=== PATIENT | male | born 1955 | race Caucasian/White ===

== ENCOUNTER → 2016-07-01 | Outpatient (REF) | payer BC ==
[~2016-07-01] MED LIST: /PANT40TA; ASPI325T; NITR0.4S; ZOCO40TA
== END ==
LOC: M SFHCPLAZ 15:31
PROVIDERS: ATTEND Physician Assistant
DX: R35.0 Frequency of micturition (principal); M54.5 Low back pain

== ENCOUNTER → 2016-07-02 | Outpatient (CLI) | payer BC ==
--- NOTE | 2016-07-02 19:26 | REP ---
RENAL ULTRASOUND: HISTORY: Right flank pain. The right kidney is normal in echogenicity. The right kidney measures 6.3 cm in transverse by 6.4 cm in AP by 13.7 cm in cephalocaudal dimensions. The left kidney is increased in echogenicity. The left kidney measures 4.4 cm in transverse by 6.2 cm in AP by 11.2 cm in cephalocaudal dimensions. A cyst is present in the upper pole of the right kidney. The cyst measures 5.1 x 3.4 x 4.2 cm. There is no hydronephrosis or mass. There are no filling defects in the urinary bladder. IMPRESSION: There is a cyst in the upper pole of the right kidney. Signed by Willy Jorgensen MD 07/02/2016 07:34 P
== END ==
LOC: M RAD 16:49
PROVIDERS: ATTEND Physician Assistant
DX: N28.1 Cyst of kidney, acquired (principal)

== ENCOUNTER → 2016-09-29 | Outpatient (CLI) | payer BC ==
--- NOTE | 2016-09-29 10:40 | REP ---
Clinical: Renal cyst. Comparison: 07/02/2016. Findings: The bilateral kidneys are essentially normal in contour, size, echogenicity and reniform shape. No hydronephrosis, nephrolithiasis, or renal mass lesions are identified. Right kidney measures 14.3 x 5.4 x 5.4 cm and includes stable 5.6 x 4.3 x 4.8 cm cyst in the upper pole. Left kidney measures 11.5 x 5.2 x 4.9 cm without cyst. Bladder is under distended and grossly unremarkable. Impression: Stable right upper pole renal cyst measures 5.6 cm maximal diameter and is identified on prior CT dated 06/25/2005. Signed by Andrzej Nj MD 09/29/2016 10:30 A
== END ==
LOC: M RAD 09:40
PROVIDERS: ATTEND Physician Assistant
DX: N28.1 Cyst of kidney, acquired (principal)

== ENCOUNTER → 2016-11-20 | Outpatient (CLI) | payer BC ==
--- NOTE | 2016-11-20 12:09 | REP ---
Clinical: Arthralgia. Technique: AP, lateral, bilateral oblique and sunrise views of the right knee. Findings: Advanced tricompartmental osteoarthritic degenerative changes are appreciated including osteophytosis, subchondral sclerosis, tibiofemoral and patellofemoral joint space narrowing, and chondrocalcinosis as well as loose bodies. A small suprapatellar effusion is suggested. There is no acute fracture or dislocation identified. Impression: Advanced tricompartmental degenerative changes. Small suprapatellar effusion. Signed by Andrzej Nj MD 11/20/2016 12:00 P
== END ==
LOC: M SMT 11:09
PROVIDERS: ATTEND Nurse Practitioner Family
DX: M17.11 Unilateral primary osteoarthritis, right knee (principal); M25.461 Effusion, right knee

== ENCOUNTER → 2016-11-20 | Outpatient (REF) | payer BC ==
[2016-11-20 19:38] LABS: BASO # 0.1 K/mm3 (0.0-0.2); EOS # 0.1 K/mm3 (0.0-0.50); LARGE UNSTAINED CELL # 0.1 K/mm3 (0.0-0.4); LARGE UNSTAINED CELL % 1.8 % (0.0-4.0); LYMPH # 1.5 K/mm3 (1.5-4.5); LYMPH % 20.3 % (24.0-44.0); MEAN CORPUSCULAR HEMOGLOBIN 34.8 pg (27.0-33.0); MEAN CORPUSCULAR HGB CONC 33.5 g/dl (32.0-36.5); MEAN CORPUSCULAR VOLUME 103.7 fl (80.0-96.0); MONO # 0.5 K/mm3 (0.0-0.8); MONO % 7.4 % (0.0-5.0); NEUTROPHILS # 4.9 K/mm3 (1.8-7.7); NEUTROPHILS % 67.5 % (36.0-66.0); PLATELET COUNT, AUTOMATED 280 k/mm3 (150-450); RED CELL DISTRIBUTION WIDTH 11.9 % (11.5-14.5); WHITE BLOOD COUNT 7.3 K/mm3 (4.0-10.0)
[2016-11-25 00:06] LABS: Lyme Disease IgG/IgM Antibodie <0.91 ISR (0.00-0.90); Lyme Disease IgM Ab Quantitati <0.80 index (0.00-0.79)
== END ==
LOC: M SFHCPLAZ 10:54
PROVIDERS: ATTEND Nurse Practitioner Family
DX: R50.9 Fever, unspecified (principal); M25.561 Pain in right knee

== ENCOUNTER → 2016-11-25 | Outpatient (CLI) | payer BC ==
--- NOTE | 2016-11-25 22:09 | REP ---
Clinical: Back pain. Arthralgia. Technique: AP, lateral, bilateral oblique and coned-down views of the lumbosacral spine. Findings: Moderate to early advanced multilevel degenerative disc osteophyte complex are noted. Findings include endplate sclerosis marginal osteophytes disc space narrowed and hypertrophic facet changes H are most pronounced at the L4-L5, L5-S1 and L3-L4 levels. No acute fracture / compression injury or subluxation. No spondylolysis or spondylolisthesis. Impression: Moderate to early advanced multilevel degenerative changes. Signed by Andrzej Nj MD 11/25/2016 10:01 P
--- NOTE | 2016-11-25 22:11 | REP ---
Clinical: Hip pain. Arthralgia. Technique: AP view of the pelvis with neutral and frog lateral views of the right and left hip. Findings: Symmetric early advanced degenerative changes include increased sclerosis to the acetabular roof with marginal spurring, joint space narrowing as well as moderate spur along the superior margin of the right femoral head and bilateral cortical irregularity at the greater trochanters. No acute fracture dislocation. Impression: Relatively symmetric early advanced degenerative changes. Signed by Andrzej Nj MD 11/25/2016 10:03 P
== END ==
LOC: M WUC 15:54
PROVIDERS: ATTEND Physician Assistant Medical
DX: M47.816 Spondylosis without myelopathy or radiculopathy, lumbar region (principal); M16.0 Bilateral primary osteoarthritis of hip

== ENCOUNTER → 2016-11-25 | Outpatient (REF) | payer BC ==
[2016-11-25 19:36] LABS: BASO % 0.4 % (0.0-1.0); EOS # 0.1 K/mm3 (0.0-0.50); EOS % 1.9 % (0.0-3.0); LARGE UNSTAINED CELL # 0.2 K/mm3 (0.0-0.4); LARGE UNSTAINED CELL % 2.3 % (0.0-4.0); LYMPH # 1.9 K/mm3 (1.5-4.5); LYMPH % 24.4 % (24.0-44.0); MEAN CORPUSCULAR HEMOGLOBIN 33.9 pg (27.0-33.0); MEAN CORPUSCULAR HGB CONC 32.6 g/dl (32.0-36.5); MEAN CORPUSCULAR VOLUME 104.1 fl (80.0-96.0); MONO # 0.5 K/mm3 (0.0-0.8); MONO % 7.5 % (0.0-5.0); NEUTROPHILS # 4.5 K/mm3 (1.8-7.7); NEUTROPHILS % 63.5 % (36.0-66.0); PLATELET COUNT, AUTOMATED 315 k/mm3 (150-450); WHITE BLOOD COUNT 7.1 K/mm3 (4.0-10.0)
[2016-11-25 21:26] LABS: ERYTHROCYTE SEDIMENTATION RATE 68 mm/hr (0-20)
== END ==
LOC: M SFHCPLAZ 15:07
PROVIDERS: ATTEND Physician Assistant Medical
DX: R50.9 Fever, unspecified (principal)

== ENCOUNTER → 2016-11-28 | Outpatient (REF) | payer BC ==
[2016-11-28 20:25] LABS: MEAN CORPUSCULAR HEMOGLOBIN 34.7 pg (27.0-33.0); MEAN CORPUSCULAR HGB CONC 33.9 g/dl (32.0-36.5); MEAN CORPUSCULAR VOLUME 102.2 fl (80.0-96.0); RED CELL DISTRIBUTION WIDTH 11.4 % (11.5-14.5); WHITE BLOOD COUNT 6.3 K/mm3 (4.0-10.0)
[2016-12-02 00:11] LABS: Lyme Disease IgG/IgM Antibodie <0.91 ISR (0.00-0.90); Lyme Disease IgM Ab Quantitati <0.80 index (0.00-0.79)
== END ==
LOC: M SFHCPLAZ 10:54
PROVIDERS: ATTEND Family Medicine
DX: M19.90 Unspecified osteoarthritis, unspecified site (principal)

== ENCOUNTER → 2016-12-11 | Outpatient (REF) | payer BC ==
[2016-12-11 14:43] LABS: BASO % 0.3 % (0.0-1.0); EOS # 0.1 K/mm3 (0.0-0.50); EOS % 1.3 % (0.0-3.0); LARGE UNSTAINED CELL # 0.1 K/mm3 (0.0-0.4); LARGE UNSTAINED CELL % 1.7 % (0.0-4.0); LYMPH # 1.5 K/mm3 (1.5-4.5); LYMPH % 20.5 % (24.0-44.0); MEAN CORPUSCULAR HEMOGLOBIN 33.6 pg (27.0-33.0); MEAN CORPUSCULAR HGB CONC 33.6 g/dl (32.0-36.5); MEAN CORPUSCULAR VOLUME 100.1 fl (80.0-96.0); MONO # 0.5 K/mm3 (0.0-0.8); MONO % 6.9 % (0.0-5.0); NEUTROPHILS % 69.4 % (36.0-66.0); PLATELET COUNT, AUTOMATED 461 k/mm3 (150-450); RED CELL DISTRIBUTION WIDTH 11.2 % (11.5-14.5); WHITE BLOOD COUNT 7.2 K/mm3 (4.0-10.0)
[2016-12-11 15:15] LABS: ERYTHROCYTE SEDIMENTATION RATE 66 mm/hr (0-20)
[2016-12-17 14:14] LABS: BABESIOSIS LEVEL IGG <1:10 (Neg:<1:10); BABESIOSIS LEVEL IGM <1:10 (Neg:<1:10); Lyme Disease IgG/IgM Antibodie <0.91 ISR (0.00-0.90); Lyme Disease IgM Ab Quantitati <0.80 index (0.00-0.79)
== END ==
LOC: M SFHCPLAZ 13:26
PROVIDERS: ATTEND Internal Medicine Infectious Disease
DX: R50.9 Fever, unspecified (principal); M25.50 Pain in unspecified joint

== ENCOUNTER → 2016-12-22 | Outpatient (REF) | payer BC ==
[2016-12-22 11:27] LABS: CRYSTALS, BODY FLUID NONE SEEN (NONE SEEN); SYNOVIAL FLUID COLOR YELLOW (YELLOW)
[2016-12-22 11:37] LABS: URIC ACID, BODY FLUID 4.3 MG/DL (NOT ESTABLISHED)
[2016-12-22 11:52] LABS: RBC ADVIA BF 0.01; RBC CALC. BF 10000 (< 10mm3 cells/uL); WBC CALC. BF 9000 cells/uL (0-20)
[2016-12-22 12:01] LABS: BF DIFF IF INDICATED? YES (NO)
[2016-12-22 12:28] LABS: CC BF DIFF EXAM CYTOCENTRIFUGE; HCT SOURCE RT KNEE
== END ==
LOC: M LAB REF 10:47
PROVIDERS: ATTEND Orthopaedic Surgery
DX: M25.561 Pain in right knee (principal)

== ENCOUNTER → 2017-01-30 | Outpatient (REF) | payer BC ==
[2017-01-30 20:52] LABS: BASO % 0.6 % (0.0-1.0); EOS # 0.2 K/mm3 (0.0-0.50); EOS % 2.8 % (0.0-3.0); LARGE UNSTAINED CELL # 0.2 K/mm3 (0.0-0.4); LARGE UNSTAINED CELL % 2.6 % (0.0-4.0); LYMPH # 2.2 K/mm3 (1.5-4.5); LYMPH % 28.6 % (24.0-44.0); MEAN CORPUSCULAR HGB CONC 31.8 g/dl (32.0-36.5); MEAN CORPUSCULAR VOLUME 97.4 fl (80.0-96.0); MONO # 0.7 K/mm3 (0.0-0.8); MONO % 10.4 % (0.0-5.0); NEUTROPHILS # 3.8 K/mm3 (1.8-7.7); NEUTROPHILS % 55.1 % (36.0-66.0); PLATELET COUNT, AUTOMATED 412 k/mm3 (150-450); RED CELL DISTRIBUTION WIDTH 12.7 % (11.5-14.5); WHITE BLOOD COUNT 6.9 K/mm3 (4.0-10.0)
== END ==
LOC: M SFHCLERA 17:27
PROVIDERS: ATTEND Physician Assistant
DX: K92.1 Melena (principal)

== ENCOUNTER → 2017-03-06 | Outpatient (REF) | payer BC ==
[2017-03-06 11:49] LABS: MEAN CORPUSCULAR HEMOGLOBIN 32.6 pg (27.0-33.0); MEAN CORPUSCULAR HGB CONC 32.4 g/dl (32.0-36.5); MEAN CORPUSCULAR VOLUME 100.7 fl (80.0-96.0); PLATELET COUNT, AUTOMATED 257 10^3/uL (150-450); RED CELL DISTRIBUTION WIDTH 16.2 % (11.5-14.5); WHITE BLOOD COUNT 5.8 10^3/uL (4.0-10.0)
[2017-03-06 12:14] LABS: ALBUMIN 3.2 GM/DL (3.2-5.2); ALBUMIN/GLOBULIN RATIO 0.78 (1.00-1.93); ALKALINE PHOSPHATASE 72 U/L (45-117); ALT/SGPT 50 U/L (12-78); ANION GAP 7 MEQ/L (8-16); AST/SGOT 32 U/L (15-37); BILIRUBIN,TOTAL 0.6 MG/DL (0.2-1.0); BLOOD UREA NITROGEN 14 MG/DL (7-18); CALCIUM LEVEL 8.8 MG/DL (8.8-10.2); CARBON DIOXIDE LEVEL 29 MEQ/L (21-32); CHLORIDE LEVEL 104 MEQ/L (98-107); CHOLESTEROL LEVEL 116 MG/DL (<200); CREATININE FOR GFR 0.79 MG/DL (0.70-1.30); GLOMERULAR FILTRATION RATE > 60.0 (>49); GLUCOSE, FASTING 85 MG/DL (80-110); POTASSIUM SERUM 4.7 MEQ/L (3.5-5.1); SODIUM LEVEL 140 MEQ/L (136-145); TOTAL PROTEIN 7.3 GM/DL (6.4-8.2); TRIGLYCERIDES LEVEL 59 MG/DL (<150)
== END ==
LOC: M SFHCPLAZ 09:09
PROVIDERS: ATTEND Family Medicine
DX: I25.10 Atherosclerotic heart disease of native coronary artery without angina pectoris (principal); G71.2 Congenital myopathies; E78.2 Mixed hyperlipidemia; Z12.5 Encounter for screening for malignant neoplasm of prostate
CPT/HCPCS: 36415; 80053; 80061; 82550; 85027; G0103

== ENCOUNTER 2017-04-16 11:44 | Day surgery (SDC) | payer BC ==
[~2017-04-16] VITALS: Ht 182.9 cm; Wt 89.4 kg
[~2017-04-16 11:44] MED LIST changes: +ASPI1TAB PO; +CARV6.25; +PRED25TA PO; +REME30TA PO; +SULF500T2 PO
[2017-04-16] MEDS ORDERED: NS 1,000 ML IV ONE (14:15)
[2017-04-16] MEDS ORDERED: PROPOFOL 200 MG/20 ML VIAL As Ordered ONE (14:47)
--- NOTE | 2017-04-16 15:14 | ROOR ---
Patient Name: Lux Lees Procedure Date: 04/16/2017 2:49 PM Date of : 1955 Age: 61 Room: [facility] Gender: Male Note Status: Finalized Procedure: Colonoscopy Indications: Screening for colorectal malignant neoplasm, last colonoscopy incomplete (more recent than 10 years ago), Incidental - Hematochezia Providers: Preet VILLA MD Referring MD: Rambo Wu MD Requesting Provider: Medicines: Monitored Anesthesia Care Complications: No immediate complications. Procedure: Pre-Anesthesia Assessment: - The heart rate, respiratory rate, oxygen saturations, blood pressure, adequacy of pulmonary ventilation, and response to care were monitored throughout the procedure. The Colonoscope was introduced through the anus and advanced to 8 cm into the ileum. The colonoscopy was performed without difficulty. The patient tolerated the procedure well. The quality of the bowel preparation was good. Findings: Hemorrhoids were found on perianal exam. A 3 mm polyp was found in the sigmoid colon. The polyp was sessile. The polyp was removed with a jumbo cold forceps. Resection and retrieval were complete. Multiple medium-mouthed diverticula were found in the sigmoid colon. The exam was otherwise without abnormality on direct and retroflexion views. (Exam: Complete, Prep: Good or Excellent.) Impression: - (Exam: Complete, Prep: Good or Excellent.) - Hemorrhoids found on perianal exam. - One 3 mm polyp in the sigmoid colon, removed with a jumbo cold forceps. Resected and retrieved. - Moderate diverticulosis in the sigmoid colon. - The examination was otherwise normal on direct and retroflexion views. Recommendation: - Telephone endoscopist for pathology results in 2 weeks. - If the pathology report reveals adenomatous tissue, then repeat the colonoscopy for surveillance in 5 years. - If the pathology report indicates hyperplastic polyp, then repeat colonoscopy for screening purposes in 10 years. Preet Villa MD Preet VILLA MD 04/16/2017 3:14:00 PM This report has been signed electronically. Number of Addenda: 0 Note Initiated On: 04/16/2017 2:49 PM Estimated Blood Loss: Estimated blood loss: none.
[2017-04-16 15:38] VITALS: BP 150/86
== END 2017-04-16 15:56 | disposition home or self-care (01) ==
LOC: M OPP 11:44
PROVIDERS: ATTEND Internal Medicine Gastroenterology
DX: K64.9 Unspecified hemorrhoids (principal); K57.30 Diverticulosis of large intestine without perforation or abscess without bleeding; D12.5 Benign neoplasm of sigmoid colon; I10 Essential (primary) hypertension; E78.00 Pure hypercholesterolemia, unspecified; F17.210 Nicotine dependence, cigarettes, uncomplicated; F41.9 Anxiety disorder, unspecified; F32.9 Major depressive disorder, single episode, unspecified; R06.02 Shortness of breath; R06.83 Snoring; Z79.82 Long term (current) use of aspirin; Z79.899 Other long term (current) drug therapy; Z95.5 Presence of coronary angioplasty implant and graft

== ENCOUNTER → 2017-07-07 | Outpatient (REF) | payer BC ==
[2017-07-07 12:58] LABS: ALBUMIN 3.4 GM/DL (3.2-5.2); ALKALINE PHOSPHATASE 64 U/L (45-117); ALT/SGPT 24 U/L (12-78); ANION GAP 7 MEQ/L (8-16); AST/SGOT 20 U/L (7-37); BILIRUBIN,TOTAL 0.4 MG/DL (0.2-1.0); BLOOD UREA NITROGEN 17 MG/DL (7-18); CALCIUM LEVEL 9.3 MG/DL (8.8-10.2); CARBON DIOXIDE LEVEL 30 MEQ/L (21-32); CHLORIDE LEVEL 104 MEQ/L (98-107); CREATININE FOR GFR 0.76 MG/DL (0.70-1.30); GLOMERULAR FILTRATION RATE > 60.0 (>49); GLUCOSE, FASTING 93 MG/DL (70-100); POTASSIUM SERUM 4.7 MEQ/L (3.5-5.1); SODIUM LEVEL 141 MEQ/L (136-145); TOTAL PROTEIN 7.6 GM/DL (6.4-8.2)
[2017-07-07 12:59] LABS: ALBUMIN/GLOBULIN RATIO 0.81 (1.00-1.93)
[2017-07-07 13:03] LABS: ERYTHROCYTE SEDIMENTATION RATE 48 mm/hr (0-20)
[2017-07-07 13:06] LABS: BASO # 0.1 10^3/uL (0.0-0.2); BASO % 0.8 % (0.0-1.0); EOS # 0.1 10^3/uL (0.0-0.50); EOS % 2.1 % (0.0-3.0); HEMATOCRIT 41.4 % (42.0-52.0); HEMOGLOBIN 13.6 g/dl (14.0-18.0); IMMATURE GRANULOCYTE % 0.3 % (0-3.0); LYMPH # 1.3 10^3/uL (1.5-4.5); LYMPH % 21.6 % (24.0-44.0); MEAN CORPUSCULAR HEMOGLOBIN 33.3 pg (27.0-33.0); MEAN CORPUSCULAR HGB CONC 32.9 g/dl (32.0-36.5); MEAN CORPUSCULAR VOLUME 101.2 fl (80.0-96.0); MONO # 0.9 10^3/uL (0.0-0.8); NEUTROPHILS # 3.8 10^3/uL (1.8-7.7); NEUTROPHILS % 61.2 % (36.0-66.0); PLATELET COUNT, AUTOMATED 315 10^3/uL (150-450); RED BLOOD COUNT 4.09 10^6/uL (4.30-6.10); RED CELL DISTRIBUTION WIDTH 13.3 % (11.5-14.5); WHITE BLOOD COUNT 6.2 10^3/uL (4.0-10.0)
== END ==
LOC: M LABDRAWP 11:39
DX: Z79.899 Other long term (current) drug therapy (principal)
CPT/HCPCS: 80053

== ENCOUNTER 2018-01-19 10:06 | Emergency (ER) | payer BC ==
[2018-01-19] MEDS: NAPROXEN 250 MG TAB PO (12:24)
== END 2018-01-19 14:39 | disposition home or self-care (01) ==
LOC: M ED 10:06
DX: M54.41 Lumbago with sciatica, right side (principal); I10 Essential (primary) hypertension; J44.9 Chronic obstructive pulmonary disease, unspecified; I25.2 Old myocardial infarction; M06.9 Rheumatoid arthritis, unspecified; Z95.5 Presence of coronary angioplasty implant and graft; Z79.899 Other long term (current) drug therapy; Z79.82 Long term (current) use of aspirin; F17.210 Nicotine dependence, cigarettes, uncomplicated
CPT/HCPCS: 72110

== ENCOUNTER → 2018-01-26 | Outpatient (REF) | payer BC ==
[2018-01-26 11:15] LABS: HEMATOCRIT 44.7 % (42.0-52.0); HEMOGLOBIN 14.9 g/dl (13.5-17.5); MEAN CORPUSCULAR HEMOGLOBIN 33.4 pg (27.0-33.0); MEAN CORPUSCULAR HGB CONC 33.3 g/dl (32.0-36.5); MEAN CORPUSCULAR VOLUME 100.2 fl (80.0-96.0); PLATELET COUNT, AUTOMATED 254 10^3/uL (150-450); RED BLOOD COUNT 4.46 10^6/uL (4.30-6.10); RED CELL DISTRIBUTION WIDTH 11.9 % (11.5-14.5); WHITE BLOOD COUNT 5.8 10^3/uL (4.0-10.0)
[2018-01-26 11:56] LABS: ERYTHROCYTE SEDIMENTATION RATE 42 mm/hr (0-20)
[2018-01-26 12:29] LABS: ALBUMIN 3.6 GM/DL (3.2-5.2); ALKALINE PHOSPHATASE 53 U/L (45-117); ALT/SGPT 32 U/L (12-78); ANION GAP 6 MEQ/L (8-16); AST/SGOT 25 U/L (7-37); BILIRUBIN,TOTAL 0.5 MG/DL (0.2-1.0); BLOOD UREA NITROGEN 18 MG/DL (7-18); CALCIUM LEVEL 9.2 MG/DL (8.8-10.2); CARBON DIOXIDE LEVEL 28 MEQ/L (21-32); CHLORIDE LEVEL 107 MEQ/L (98-107); CHOLESTEROL LEVEL 111 MG/DL (<200); CHOLESTEROL RISK RATIO 2.466 (<5); CREATININE FOR GFR 0.72 MG/DL (0.70-1.30); GLOMERULAR FILTRATION RATE > 60.0 (>49); GLUCOSE, FASTING 98 MG/DL (70-100); HDL CHOLESTEROL 45 MG/DL (>40); LDL CHOLESTEROL 54 MG/DL (<100); NON-HDL-C 66 MG/DL; POTASSIUM SERUM 4.2 MEQ/L (3.5-5.1); PSA SCREENING 2.06 NG/ML (< 4.0); SODIUM LEVEL 141 MEQ/L (136-145); TOTAL PROTEIN 7.5 GM/DL (6.4-8.2); TRIGLYCERIDES LEVEL 60 MG/DL (<150)
[2018-01-26 16:12] LABS: ALBUMIN/GLOBULIN RATIO 0.92 (1.00-1.93)
== END ==
LOC: M LABDRAW1 10:33
DX: M06.00 Rheumatoid arthritis without rheumatoid factor, unspecified site (principal); I25.10 Atherosclerotic heart disease of native coronary artery without angina pectoris; F32.9 Major depressive disorder, single episode, unspecified; I11.9 Hypertensive heart disease without heart failure; E78.2 Mixed hyperlipidemia; Z12.5 Encounter for screening for malignant neoplasm of prostate
CPT/HCPCS: 80053

== ENCOUNTER → 2019-01-20 | Outpatient (REF) | payer BC ==
[~2019-01-20] MED LIST changes: -/PANT40TA; -ASPI1TAB PO; +ASPI81TA26 PO; +HYDR200T3; +NAPR-837 PO; +PROT1TAB2; +ROBA500T PO; +VALI10TA PO
[2019-01-20 16:50] LABS: HEMATOCRIT 42.7 % (42.0-52.0); MEAN CORPUSCULAR HEMOGLOBIN 33.1 pg (27.0-33.0); MEAN CORPUSCULAR HGB CONC 32.8 g/dl (32.0-36.5); MEAN CORPUSCULAR VOLUME 100.9 fl (80.0-96.0); PLATELET COUNT, AUTOMATED 246 10^3/uL (150-450); RED BLOOD COUNT 4.23 10^6/uL (4.30-6.10); WHITE BLOOD COUNT 5.6 10^3/uL (4.0-10.0)
[2019-01-20 17:02] LABS: ALBUMIN 3.4 GM/DL (3.2-5.2); ALT/SGPT 30 U/L (12-78); BILIRUBIN,TOTAL 0.5 MG/DL (0.2-1.0); BLOOD UREA NITROGEN 12 MG/DL (7-18); CALCIUM LEVEL 9.1 MG/DL (8.8-10.2); CARBON DIOXIDE LEVEL 28 MEQ/L (21-32); CHLORIDE LEVEL 105 MEQ/L (98-107); CHOLESTEROL LEVEL 106 MG/DL (<200); CHOLESTEROL RISK RATIO 2.255 (<5); GLOMERULAR FILTRATION RATE > 60.0 (>49); GLUCOSE, FASTING 82 MG/DL (70-100); HDL CHOLESTEROL 47 MG/DL (>40); LDL CHOLESTEROL 50 MG/DL (<100); NON-HDL-C 59 MG/DL; POTASSIUM SERUM 4.4 MEQ/L (3.5-5.1); SODIUM LEVEL 138 MEQ/L (136-145); TOTAL PROTEIN 7.7 GM/DL (6.4-8.2); TRIGLYCERIDES LEVEL 46 MG/DL (<150)
== END ==
LOC: M SFHCADAM 12:57
PROVIDERS: ATTEND Family Medicine
DX: I25.10 Atherosclerotic heart disease of native coronary artery without angina pectoris (principal); F32.9 Major depressive disorder, single episode, unspecified; I11.9 Hypertensive heart disease without heart failure; E78.2 Mixed hyperlipidemia; Z12.5 Encounter for screening for malignant neoplasm of prostate

== ENCOUNTER → 2019-08-16 | Outpatient (CLI) | payer BC ==
--- NOTE | 2019-08-16 11:56 | REP ---
REASON FOR EXAM: Tobacco abuse. The latest prior for comparison is 06/25/2005. Standard contrast enhanced chest CT. As per the protocol only, lung window images were sent to the read station for interpretation. There are no abnormal nodules, masses, or opacities. Grossly, the mediastinum and pulmonary rosa are essentially unchanged. There is a round 1.2 cm sized right paratracheal lymph node that is stable. Grossly the imaged upper abdomen and imaged osseous structures are unchanged. There is a right renal cyst, which appears to have increased in size from the prior exam but difficult to evaluate due to the protocol utilized to obtain a screening chest CT. IMPRESSION: Lung RADS category I negative CT examination of the chest but with other findings as described above. Electronically Signed by Simeon Greenwood DO 08/16/2019 01:42 P
== END ==
LOC: M RAD 10:36
PROVIDERS: ATTEND Family Medicine
DX: Z12.2 Encounter for screening for malignant neoplasm of respiratory organs (principal); F17.200 Nicotine dependence, unspecified, uncomplicated; N28.1 Cyst of kidney, acquired

== ENCOUNTER → 2020-04-11 | Outpatient (REF) | payer BC ==
[~2020-04-11] MED LIST changes: +MIRT-60 PO; -REME30TA PO
[2020-04-11 16:22] LABS: HEMATOCRIT 44.2 % (42.0-52.0); HEMOGLOBIN 14.6 g/dl (13.5-17.5); MEAN CORPUSCULAR HEMOGLOBIN 33.4 pg (27.0-33.0); MEAN CORPUSCULAR VOLUME 101.1 fl (80.0-96.0); PLATELET COUNT, AUTOMATED 266 10^3/uL (150-450); RED BLOOD COUNT 4.37 10^6/uL (4.30-6.10); WHITE BLOOD COUNT 5.8 10^3/uL (4.0-10.0)
[2020-04-11 16:28] LABS: ALBUMIN 3.2 GM/DL (3.2-5.2); ALT/SGPT 23 U/L (12-78); BILIRUBIN,TOTAL 0.7 MG/DL (0.2-1.0); BLOOD UREA NITROGEN 12 MG/DL (7-18); CALCIUM LEVEL 9.1 MG/DL (8.8-10.2); CARBON DIOXIDE LEVEL 30 MEQ/L (21-32); CHLORIDE LEVEL 104 MEQ/L (98-107); CHOLESTEROL LEVEL 98 MG/DL (<200); CHOLESTEROL RISK RATIO 2.177 (<5); CREATININE FOR GFR 0.92 MG/DL (0.70-1.30); GLOMERULAR FILTRATION RATE > 60.0 (>49); GLUCOSE, FASTING 90 MG/DL (70-100); HDL CHOLESTEROL 45 MG/DL (>40); LDL CHOLESTEROL 42 MG/DL (<100); NON-HDL-C 53 MG/DL; POTASSIUM SERUM 4.5 MEQ/L (3.5-5.1); SODIUM LEVEL 137 MEQ/L (136-145); TOTAL PROTEIN 8.2 GM/DL (6.4-8.2); TRIGLYCERIDES LEVEL 55 MG/DL (<150)
== END ==
LOC: M SFHCCLAY 11:01
PROVIDERS: ATTEND Family Medicine
DX: I25.10 Atherosclerotic heart disease of native coronary artery without angina pectoris (principal); I11.9 Hypertensive heart disease without heart failure; E78.2 Mixed hyperlipidemia; Z12.5 Encounter for screening for malignant neoplasm of prostate
CPT/HCPCS: 80053; 80061; 85027; G0103

== ENCOUNTER → 2020-08-15 | Outpatient (CLI) | payer MEDICARE, BC ==
--- NOTE | 2020-08-15 14:00 | REP ---
INDICATION: SCREENING FOR LUNG CA. COMPARISON: 08/16/2019, chest 02/12/2012 TECHNIQUE: Low-dose lung CT screening protocol performed with only lung window images presented per that protocol. FINDINGS: Lung ruiz remain well inflated. The anterior segment of the right upper lobe just above the minor fissure there is some peribronchial nodularity that may reflect tree-in-bud finding in bronchiectasis. Few other scattered more peripheral nodules in the anterior segment up to 4 mm on image 46. The linear lobulated focus with adjacent tiny bud type nodules is 19.6 mm on image 51 and that area on last year's study was in entirely normal. The right lower lobe and the right middle lobe were unremarkable. The left lung shows no parenchymal nodule or mass. There is no pleural thickening, pleural effusion, calcified pleural plaque, apical scar or pneumothorax. No pneumomediastinum. Heart not grossly enlarged. IMPRESSION: 1. Lung RADS category 4B suspicious. New finding anterior segment right upper lobe up to 19.6 mm in length is a linear lobulated density with adjacent small nodules. By size it has some worrisome features but because it is entirely new since last year a repeat low-dose CT may be performed in 1 month to evaluate for changes in an inflammatory process, which is a good possibility. If there is no change or significant improvement then appropriate follow-up would include formal chest CT and PET-CT. Regardless, close follow-up warranted in this patient. <Electronically signed by Jerardo Queen > 08/15/20 [id number]
== END ==
LOC: M RAD 10:50
PROVIDERS: ATTEND Family Medicine
DX: Z12.2 Encounter for screening for malignant neoplasm of respiratory organs (principal); R91.8 Other nonspecific abnormal finding of lung field

== ENCOUNTER → 2020-09-17 | Outpatient (CLI) | payer MEDICARE, BC ==
[~2020-09-17] MED LIST changes: +ISOVUE-370 76% 100ML VIAL As Ordered ONE
--- NOTE | 2020-09-17 09:13 | REP ---
INDICATION: RUL PULMONARY NODULE, AAA COMPARISON: None. TECHNIQUE: Real time abbott scale ultrasound examination using curved array transducer. FINDINGS: The abdominal aorta demonstrates mild atheromatous plaquing without evidence for aneurysmal dilatation. Proximal aorta: 2.8 x 3.2 cm Mid aorta: 2.6 x 2.4 cm Distal aorta: 2.3 x 1.9 cm Right common iliac artery: 1.4 x 1.2 cm Left common iliac artery: 1.4 x 1.2 cm IMPRESSION: Atheromatous plaquing. No aneurysm. <Electronically signed by Andrzej Nj > 09/17/20 [id number]
--- NOTE | 2020-09-17 09:22 | REP ---
INDICATION: RUL PULMONARY NODULE, AAA COMPARISON: 08/15/2020, 06/25/2005 TECHNIQUE: Axial contrast enhanced images from the thoracic inlet to the upper abdomen with coronal and sagittal reformations using 75 ml Isovue 370 intravenous contrast material. This CT examination was performed using the following dose reduction techniques: Automated exposure control, adjustment of mA and/or kv according to the patient's size, and use of iterative reconstruction technique. FINDINGS: The small cluster of noncalcified nodules in the perihilar right upper lobe (series 201; images 45-53) is essentially unchanged when compared with recent prior examination. The lung ruiz are otherwise clear/stable and without new acute consolidation, nodule or mass lesion. No pleural effusion. No pneumothorax. Tracheobronchial tree is patent. No significant adenopathy is identified. Thoracic aorta, pulmonary vasculature, and heart/pericardium are relatively stable. Atherosclerotic changes to the coronary arteries are again noted. No pericardial effusion. Surrounding musculoskeletal structures are intact. IMPRESSION: Small cluster of noncalcified nodules measuring up to roughly 4 mm in the perihilar right upper lobe is unchanged when compared to most recent prior examination. Findings are nonspecific. Due to the small size of the individual nodules, PET-CT may or may not be of value but should be considered. Otherwise, follow-up contrast enhanced chest CT at 3-6 months may be warranted to evaluate for change. <Electronically signed by Andrzej Nj > 09/17/20 [id number]
== END ==
LOC: M RAD 08:14
PROVIDERS: ATTEND Family Medicine
DX: R91.1 Solitary pulmonary nodule (principal); Z13.6 Encounter for screening for cardiovascular disorders; I70.0 Atherosclerosis of aorta
CPT/HCPCS: 71260; 76706; Q9967

== ENCOUNTER → 2021-05-07 | Outpatient (REF) | payer MEDICARE, BC ==
[~2021-05-07] MED LIST changes: -ISOVUE-370 76% 100ML VIAL As Ordered ONE
[2021-05-07 16:45] LABS: ALT/SGPT 20 U/L (12-78); BILIRUBIN,TOTAL 0.5 MG/DL (0.2-1.0); BLOOD UREA NITROGEN 12 MG/DL (7-18); CARBON DIOXIDE LEVEL 30 MEQ/L (21-32); CHLORIDE LEVEL 106 MEQ/L (98-107); CHOLESTEROL LEVEL 90 MG/DL (<200); CHOLESTEROL RISK RATIO 2.432 (<5); CREATININE FOR GFR 0.84 MG/DL (0.70-1.30); GLOMERULAR FILTRATION RATE > 60.0 (>49); GLUCOSE, FASTING 93 MG/DL (70-100); HDL CHOLESTEROL 37 MG/DL (>40); LDL CHOLESTEROL 41 MG/DL (<100); NON-HDL-C 53 MG/DL; POTASSIUM SERUM 4.5 MEQ/L (3.5-5.1); SODIUM LEVEL 139 MEQ/L (136-145); TOTAL PROTEIN 8.6 GM/DL (6.4-8.2); TRIGLYCERIDES LEVEL 59 MG/DL (<150)
== END ==
LOC: M SFHCCLAY 11:22
PROVIDERS: ATTEND Family Medicine
DX: I11.9 Hypertensive heart disease without heart failure (principal); E78.2 Mixed hyperlipidemia; Z12.5 Encounter for screening for malignant neoplasm of prostate
CPT/HCPCS: 80053; 80061; G0103

== ENCOUNTER → 2022-07-10 | Outpatient (CLI) | payer MEDICARE, BC ==
[~2022-07-10] MED LIST changes: +MIRT-10 PO; +SIMV40TA20 PO
== END ==
LOC: M LABSMTC 10:44
PROVIDERS: ATTEND Anesthesiology
DX: Z01.812 Encounter for preprocedural laboratory examination (principal); Z11.52 Encounter for screening for COVID-19

== ENCOUNTER 2022-07-15 08:58 | Day surgery (SDC) | payer MEDICARE, BC ==
[~2022-07-15] VITALS: Ht 182.9 cm; Wt 89.7 kg
[~2022-07-15 08:58] MED LIST changes: +GLYCOPYRROLATE INJ 0.2 MG/ML 2 ML VIAL As Ordered ONE; +LIDOCAINE 2% 100MG/5ML SDV (FOR ANES.) As Ordered ONE; +NS 1,000 ML IV ONE; +propofoL 200 MG/20 ML VIAL As Ordered ONE
[2022-07-15] MEDS ORDERED: propofoL 200 MG/20 ML VIAL As Ordered ONE (09:52)
[2022-07-15 10:35] VITALS: BP 142/78
== END 2022-07-15 10:48 | disposition home or self-care (01) ==
LOC: M OPP 08:58
PROVIDERS: ATTEND Internal Medicine Gastroenterology
DX: Z12.11 Encounter for screening for malignant neoplasm of colon (principal); Z86.010 Personal history of colon polyps; K57.30 Diverticulosis of large intestine without perforation or abscess without bleeding; K64.8 Other hemorrhoids; K44.9 Diaphragmatic hernia without obstruction or gangrene; I25.10 Atherosclerotic heart disease of native coronary artery without angina pectoris; C85.90 Non-Hodgkin lymphoma, unspecified, unspecified site; F17.200 Nicotine dependence, unspecified, uncomplicated; Z95.5 Presence of coronary angioplasty implant and graft
CPT/HCPCS: 43235; G0105

== ENCOUNTER → 2024-01-04 | Outpatient (REF) | payer MEDICARE, BC ==
[~2024-01-04] MED LIST changes: +DIAZ-654 PO; -GLYCOPYRROLATE INJ 0.2 MG/ML 2 ML VIAL As Ordered ONE; -HYDR200T3; +HYDR200T46; -LIDOCAINE 2% 100MG/5ML SDV (FOR ANES.) As Ordered ONE; -MIRT-60 PO; +MIRT-89 PO; -NS 1,000 ML IV ONE; -VALI10TA PO; -propofoL 200 MG/20 ML VIAL As Ordered ONE
[2024-01-04 13:02] LABS: BASO % 0.9 % (0.0-1.0); EOS # 0.2 10^3/uL (0.0-0.5); EOS % 4.6 % (0.0-3.0); HEMOGLOBIN 12.6 g/dl (13.5-17.5); LYMPH # 1.5 10^3/uL (1.5-5.0); LYMPH % 33.3 % (24.0-44.0); MEAN CORPUSCULAR HEMOGLOBIN 34.5 pg (27.0-33.0); MEAN CORPUSCULAR HGB CONC 33.2 g/dl (32.0-36.5); MEAN CORPUSCULAR VOLUME 104.1 fl (80.0-96.0); MONO # 0.5 10^3/uL (0.0-0.8); MONO % 12.4 % (2.0-8.0); NEUTROPHILS # 2.1 10^3/uL (1.5-8.5); NEUTROPHILS % 48.6 % (36.0-66.0); PLATELET COUNT, AUTOMATED 188 10^3/uL (150-450); RED BLOOD COUNT 3.65 10^6/uL (4.30-6.10); WHITE BLOOD COUNT 4.4 10^3/uL (4.0-10.0)
[2024-01-04 13:11] LABS: HEMOGLOBIN A1c 5.5 % (4.0-6.0)
[2024-01-04 13:37] LABS: PSA SCREENING 1.12 NG/ML (< 4.00)
[2024-01-04 13:40] LABS: ALBUMIN 2.7 G/DL (3.2-5.2); ALKALINE PHOSPHATASE 75 U/L (46-116); ALT/SGPT 27 U/L (7.0-40); AST/SGOT 35 U/L (<34); BILIRUBIN,TOTAL 0.4 MG/DL (0.3-1.2); BLOOD UREA NITROGEN 15 MG/DL (9-23); CALCIUM LEVEL 8.6 MG/DL (8.3-10.6); CARBON DIOXIDE LEVEL 27 MMOL/L (20-31); CHLORIDE LEVEL 107 MMOL/L (98-107); CHOLESTEROL LEVEL 85 MG/DL (<200); CHOLESTEROL RISK RATIO 3.09 (<5); CREATININE FOR GFR 0.93 MG/DL (0.70-1.30); GLOMERULAR FILTRATION RATE > 60.0 (>49); GLUCOSE, FASTING 113 MG/DL (74-106); HDL CHOLESTEROL 27.5 MG/DL (>40); LDL CHOLESTEROL 48.1 MG/DL (<100); NON-HDL-C 57.5 MG/DL; SODIUM LEVEL 138 MMOL/L (136-145); TOTAL PROTEIN 8.3 G/DL (5.7-8.2); TRIGLYCERIDES LEVEL 47 MG/DL (<150)
== END ==
LOC: M SFHCCLAY 07:15
PROVIDERS: ATTEND Family Medicine
DX: C85.80 Other specified types of non-Hodgkin lymphoma, unspecified site (principal); E78.2 Mixed hyperlipidemia; I25.10 Atherosclerotic heart disease of native coronary artery without angina pectoris; Z95.5 Presence of coronary angioplasty implant and graft; Z12.5 Encounter for screening for malignant neoplasm of prostate; Z13.1 Encounter for screening for diabetes mellitus
CPT/HCPCS: 80053; 80061; 83036; 85025; G0103

== ENCOUNTER → 2024-11-21 | Outpatient (REF) | payer MEDICARE, BC ==
[2024-11-21 18:03] LABS: ALT/SGPT 23 U/L (7.0-40); AST/SGOT 36 U/L (<34); CALCIUM LEVEL 9.3 MG/DL (8.3-10.6); CARBON DIOXIDE LEVEL 26 MMOL/L (20-31); CHLORIDE LEVEL 105 MMOL/L (98-107); CHOLESTEROL LEVEL 69 MG/DL (<200); CHOLESTEROL RISK RATIO 2.59 (<5); CREATININE FOR GFR 0.91 MG/DL (0.70-1.30); GLOMERULAR FILTRATION RATE > 90.0 (>49); LDL CHOLESTEROL 34.2 MG/DL (<100); NON-HDL-C 42.4 MG/DL; POTASSIUM SERUM 4.8 MMOL/L (3.5-5.1); PSA SCREENING 1.56 NG/ML (< 4.00); SODIUM LEVEL 138 MMOL/L (136-145); TRIGLYCERIDES LEVEL 41 MG/DL (<150)
[2024-11-21 18:05] LABS: BASO # 0.0 10^3/uL (0.0-0.2); BASO % 0.7 % (0.0-1.0); EOS # 0.1 10^3/uL (0.0-0.5); EOS % 2.0 % (0.0-3.0); FREE T4 1.10 NG/DL (0.89-1.76); LYMPH # 1.5 10^3/uL (1.5-5.0); LYMPH % 33.4 % (24.0-44.0); MONO # 0.5 10^3/uL (0.0-0.8); MONO % 11.7 % (2.0-8.0); NEUTROPHILS # 2.3 10^3/uL (1.5-8.5); NEUTROPHILS % 52.0 % (36.0-66.0); PLATELET COUNT, AUTOMATED 259 10^3/uL (150-450)
[2024-11-21 18:18] LABS: ESTIMATED AVERAGE GLUCOSE 111.0 MG/DL (60-110)
== END ==
LOC: M SFHCCLAY 11:09
PROVIDERS: ATTEND Family Medicine
DX: C85.80 Other specified types of non-Hodgkin lymphoma, unspecified site (principal); E78.2 Mixed hyperlipidemia; Z13.1 Encounter for screening for diabetes mellitus; Z12.5 Encounter for screening for malignant neoplasm of prostate; I11.9 Hypertensive heart disease without heart failure
CPT/HCPCS: 80053; 80061; 83036; 84439; 84443; 85025; G0103

== ENCOUNTER → 2025-05-03 | Outpatient (REF) | payer MEDICARE, BC | LOC: M SFHCADAM 08:54 | PROVIDERS: ATTEND Family Medicine | DX: R10.A2 Flank pain, left side (principal) ==

== ENCOUNTER → 2025-05-04 | Outpatient (CLI) | payer MEDICARE, BC | LOC: M RAD 07:15 | PROVIDERS: ATTEND Family Medicine | DX: N28.1 Cyst of kidney, acquired (principal); R10.A2 Flank pain, left side ==